=== PATIENT | female | born 2000 | race Caucasian/White ===

== ENCOUNTER → 2023-12-06 17:02 | Outpatient (REF) | payer OTHER, SELFPAY | LOC: RAD 17:02 | PROVIDERS: ATTENDING PHYSICIAN Nurse Practitioner Family | DX: R07.89 Other chest pain (principal) | CPT/HCPCS: 71111 ==

== ENCOUNTER → 2023-12-09 14:55 | Outpatient (REF) | payer OTHER, SELFPAY | LOC: RCS 14:55 | PROVIDERS: ATTENDING PHYSICIAN Nurse Practitioner Family; FAMILY PHYSICIAN Family Medicine | DX: R07.89 Other chest pain (principal) | CPT/HCPCS: 93306 ==

== ENCOUNTER → 2024-02-03 14:19 | Outpatient (REF) | payer OTHER, SELFPAY | LOC: RCS 14:19 | PROVIDERS: ATTENDING PHYSICIAN Physician Assistant Medical; FAMILY PHYSICIAN Family Medicine | DX: R07.9 Chest pain, unspecified (principal); R42 Dizziness and giddiness | CPT/HCPCS: 93017 ==

== ENCOUNTER → 2024-06-30 15:53 | Outpatient (REF) | payer OTHER, SELFPAY | LOC: RAD 15:53 | PROVIDERS: ATTENDING PHYSICIAN Nurse Practitioner Family | DX: M25.512 Pain in left shoulder (principal); M62.838 Other muscle spasm | CPT/HCPCS: 71100; 73010; 73030 ==